=== PATIENT | male | born 1995 | race Two or more races ===

== ENCOUNTER 2022-06-18 10:24 | Emergency (ER) | payer MEDICAID ==
[~2022-06-18] VITALS: Ht 162.6 cm; Wt 46.0 kg
[2022-06-18] MEDS ORDERED: KETOROLAC 60MG/2ML VIAL IM STA (11:58)
[2022-06-18] MEDS ORDERED: BACITRACIN ZINC OINT UDPKT TOP ONE (12:15)
[2022-06-18] MEDS ORDERED: IBUP-2029 PO (12:18)
[2022-06-18] MEDS ORDERED: SULF1TAB48 PO (12:18)
[2022-06-18 12:28] VITALS: BP 100/65
== END 2022-06-18 12:46 | disposition home or self-care (01) ==
LOC: ER 10:39
DX: L02.214 Cutaneous abscess of groin (principal)
CPT/HCPCS: 96372; 99283; J1885